=== PATIENT | male | born 1985 | race Caucasian/White ===

== ENCOUNTER 2021-04-19 20:31 | Emergency (ER) | payer OTHER, SELFPAY ==
[2021-04-19 20:44] VITALS: BP 121/67; PULSE 63; RESP 17; TEMP 36.4; O2SAT 99; BMI 26.2
--- NOTE | 2021-04-19 21:28 | ED_ITS ---
HPI - URI/Sore Throat General Chief Complaint: Upper Respiratory Symptoms Stated Complaint: runny nose headache congestion Time Seen by Provider: 04/19/21 21:27 Source: patient Mode of arrival: ambulatory Limitations: no limitations History of Present Illness HPI Narrative: 35-year-old male here with his daughter he has complaints of cough, runny nose, sinus congestion and pain for 2 days. no fevers, chills, tana rtness of breath, chest pain, vomiting, diarrhea Related Data Allergies Allergy/AdvReac Type Severity Reaction Status Date / Time No Known Allergies Allergy Verified 04/19/21 20:44 [No Known Allergies*] Review of Systems Review of Systems: Yes all other systems are reviewed and are negative Constitutional: Constitutional: Reports no additional constitutional complaints, Denies body ache(s), Denies chills, Denies fever(s), Reports headache(s) and Denies weakness Eyes: Eyes: Reports no additional eye complaints and Denies change in vision ENT: Reports system reviewed and no additional complaints, except as documented, Denies dizziness, Reports headache(s), Reports nasal congestion, Denies nasal discharge and Denies neck pain Cardiovascular: Cardiovascular: Reports no additional cardiovascular complaints, Denies chest pain, Denies leg edema and Denies dyspnea Respiratory: Respiratory: Reports no additional respiratory complaints, Denies cough and Denies dyspnea Gastrointestinal: Gastrointestinal: Reports no additional gastrointestinal complaints, Denies abdominal pain, Denies diarrhea, Denies nausea and Denies vomiting Genitourinary: Genitourinary: Denies urinary incontinence Musculoskeletal: Musculoskeletal: Reports no additional musculoskeletal complaints, Denies back pain, Denies arthralgias, Denies joint swelling, Denies neck pain, Denies numbness and Denies tingling Integumentary/Breasts: Skin/Breast: Reports system reviewed and no additional complaints, except as docu and Denies rash Neurologic: Reports system reviewed and no additional complaints, except as documented, Denies Abnormal speech present, Denies dizziness, Reports headache(s), Denies numbness, Denies tingling and Denies weakness PMFSH Past Medical History Attestation statement: The following information was validated with the patient. Source: old records reviewed and nursing notes reviewed Medical History Diverticulosis Kidney stones Migraines Social History Social History Advance Directives: No Advance Directives Information Provided: Yes Physical Exam Vital Signs: Vital Signs: Last Vital Signs Temp 97.6 F 04/19/21 20:44 Pulse 63 04/19/21 20:44 Resp 17 04/19/21 20:44 BP 121/67 04/19/21 20:44 Pulse Ox 99 04/19/21 20:44 BMI result Body Mass Index 26.2 Const: General: cooperative, healthy appearing, comfortable and no acute distress Orientation/consciousness: patient oriented x3 Limitations: no limitations HENMT: Head: Yes normal to inspection Ears: hearing grossly normal bilaterally and TM's normal bilaterally General nose exam: Normal external nose present Face and sinus: Yes normal facial exam Mouth: Normal oral and palatal mucosa present Throat: Yes posterior oropharynx normal, Yes tonsils normal and Yes uvula midline Eyes: General: appearance normal, both eyes and all related structures Pupils: Equal, round and reactive pupils present Neck: Neck: Yes normal visual inspection, Yes full ROM, Yes no lymphadenopathy and Yes no meningeal signs Chest: Chest palpation & inspection: normal inspection of the chest Resp: Effort & Inspection: normal respiratory effort Auscultation: clear to auscultation bilaterally Cardio: Rate: regular rate Rhythm: regular rhythm Peripheral pulses: Peripheral pulses 2+ throughout GI: Inspection: Yes normal to inspection Palpation (GI): Soft to palpation and nontender Auscultation: normal bowel sounds Back/Spine/Pelvis: Thoracic/Lumbar Spine: thoracic and lumbar spine normal to inspection Skin: General skin exam: no rashes or lesions noted Neuro: General: patient oriented x3, no meningeal signs, no focal motor deficits and normal sensation to monofilament Cranial nerves: Yes Equal, round and reactive pupils present Cognition (Neuro): normal cognition Speech: No Abnormal speech present Gait exam (Neuro): Normal gait present Motor exam (neuro): 5/5 motor strength present throughout Extrem: General: Yes normal to inspection, Yes no pedal edema and Yes no calf tenderness Course Course Course Narrative: URI symptoms x2 days with sick contact. Vital signs are stable. Exam is benign. Will send COVID screen 2300- COVID, flu and RSV screen are negative. Likely viral. Reviewed worrisome signs and symptoms of when to return to the emergency department. Comfortable discharge home. MDM - URI/Sore Throat Medical Records Attestation: I reviewed the patient's medical records. Lab Data Attestation: I reviewed the patient's lab results. Labs: Lab Results 04/19/21 Range/Units 21:06 Influenza Type A (PCR) NEGATIVE (Negative) Influenza Type B (PCR) NEGATIVE (Negative) RSV RNA Qual (PCR) NEGATIVE (Negative) SARS-CoV-2 RNA (RT-PCR) NEGATIVE (Negative) Discharge Plan Discharge Clinical Impression: Upper respiratory infection Patient Disposition: Home, Self-Care Instructions: Upper Respiratory Infection (ED) Additional Instructions: COVID testing negative in the meantime rest, Motrin or Tylenol if able as needed for pain or fever Increase fluids Referrals: Aj Weldon MD [Primary Care Provider] - 2 days
[2021-04-19 22:02] LABS: Influenza A PCR NEGATIVE (Negative); Influenza B PCR NEGATIVE (Negative); Resp Syncy Virus RNA Qual PCR NEGATIVE (Negative); SARS COV2 PCR INHOUSE NEGATIVE (Negative)
== END 2021-04-19 23:16 | disposition home or self-care (01) ==
PROVIDERS: Nurse Practitioner Family; Emergency Provider Internal Medicine; PCP Internal Medicine
DX: J06.9 Acute upper respiratory infection, unspecified (principal); Z20.822 Contact with and (suspected) exposure to COVID-19
CPT/HCPCS: 0241U; 36415; 99283

== ENCOUNTER 2022-06-12 16:40 | Emergency (ER) | payer OTHER, SELFPAY ==
[2022-06-12 17:26] VITALS: BP 144/72; PULSE 73; RESP 16; TEMP 36.1; O2SAT 98; BMI 27.3
--- NOTE | 2022-06-12 17:27 | ED_ITS ---
HPI - General Adult General Chief complaint: Headache <OJ Sanchez Last Filed: 06/18/22 12:33> Stated complaint: Migraine <OJ Sanchez Last Filed: 06/18/22 12:33> Time Seen by Provider: 06/12/22 18:03 <OJ Sanchez Last Filed: 06/18/22 12:33> Source: patient <OJ Torres Last Filed: 06/12/22 19:07> Mode of arrival: ambulatory <OJ Torres Last Filed: 06/12/22 19:07> Limitations: no limitations <OJ Torres Last Filed: 06/12/22 19:07> History of Present Illness HPI narrative: This is a 37-year-old male history of migraines presenting to the emergency department with migraine x4 days he tells me the migraine is diffuse in nature, without vision changes or dizziness. Tells me this feels like his typical. He has taken multiple [id number] medications with little to no relief. Patient denies head trauma, fevers, chills, nausea, vomiting vision changes, weakness, changes in speech, abdominal pain, chest pain, shortness of breath, tinnitus and photophobia <OJ Torres Last Filed: 06/12/22 19:07> Related Data Home medications: Previous Rx's Medication Instructions Recorded diphenhydramine HCl 25 mg capsule 25 mg PO TID PRN migrane #14 caps 06/12/22 (Benadryl) ketorolac 10 mg tablet 10 mg PO TID PRN pain 5 days #15 06/12/22 tabs metoclopramide HCl 10 mg tablet 10 mg PO Q6H PRN migrane #14 tabs 06/12/22 (Reglan) <OJ Sanchez Last Filed: 06/18/22 12:33> Allergies/adverse reactions: Allergies Allergy/AdvReac Type Severity Reaction Status Date / Time No Known Allergies Allergy Verified 04/19/21 20:44 [No Known Allergies*] <OJ Sanchez Last Filed: 06/18/22 12:33> Review of Systems Review of Systems: Constitutional : No Weight loss, No Fever, No Chills, No Fatigue, No Malaise ENT/Mouth : No sore throat, No Rhinorrhea Eyes: No Eye Pain, No Swelling, No Redness Cardiovascular : No Chest Pain, No SOB, No Dyspnea on Exertion, No Orthopnea, No Edema, No Palpitations Respiratory : No Cough, No Sputum, No Wheezing Gastrointestinal : No Nausea, No Vomiting, No Diarrhea, No Constipation, No abdominal Pain, No Hematochezia, No Melena Genitourinary : No Dysuria, No Urinary Frequency, No Hematuria, Musculoskeletal : No joint pain, No Myalgias, No Joint Swelling Skin : No Skin Lesions, No rash Neuro : No Weakness, No Numbness, No Dizziness, + Headache Psych : No Anxiety/Panic, No Depression All other systems reviewed and are negative <OJ Torres - Last Filed: 06/12/22 19:07> Yes all other systems are reviewed and are negative <OJ Torres - Last Filed: 06/12/22 19:07> [facility] Past Medical History Attestation statement: The following information was validated with the patient. <OJ Torres - Last Filed: 06/12/22 19:07> Source: old records reviewed and nursing notes reviewed <OJ Torres - Last Filed: 06/12/22 19:07> Medical History: Medical History Diverticulosis Kidney stones Migraines <OJ Sanchez - Last Filed: 06/18/22 12:33> Social History Social History: Social History Advance Directives: No Advance Directives Information Provided: No <OJ Sanchez - Last Filed: 06/18/22 12:33> Physical Exam ED Vital Signs: Vital Signs - 24 hr 06/12/22 17:26 Temperature 96.9 F Pulse Rate 73 Respiratory Rate 16 Blood Pressure 144/72 H Pulse Oximetry 98 BMI result Body Mass Index 27.3 <OJ Sanchez - Last Filed: 06/18/22 12:33> Vital Signs - 24 hr 06/12/22 17:26 Temperature 96.9 F Pulse Rate 73 Respiratory Rate 16 Blood Pressure 144/72 H Pulse Oximetry 98 BMI result Body Mass Index 27.3 Vital signs stable <OJ Torres Last Filed: 06/12/22 19:07> Appearance: Alert.? Oriented X3.? No acute distress.? Head: Normocephalic, atraumatic, no step-offs or deformities Eyes: Pupils equal, round and reactive to light.? Neck: Normal inspection.? Neck supple.? No meningeal signs. CVS: Normal heart rate and rhythm.? Pulses normal.? Respiratory: No respiratory distress.? Breath sounds normal.? Abdomen: Soft and nontender.? Skin: Skin warm and dry.? Normal skin color.? Normal skin turgor.? Extremities: No lower extremity edema.? No calf ttp. 5/5 strength to bilateral upper and lower extremities Back: No midline tenderness, no C-spine tenderness, full range of motion, no CVA tenderness bilaterally Neuro: Oriented X 3.? No motor deficit.? No sensory deficit. CN 2-12 intact . Normal ivdifl-ml-tair, dops-yh-vaee, steady tandem gait with normal coordination. Negative Romberg and pronator drift. <OJ Torres Last Filed: 06/12/22 19:07> Course Course Course Narrative: RME: 37 yold with pmh of migrianes presents to the ED for same migraines exacerbation. patient denies chest pain or shortness of breath. patient denies any neuro symptsom. NEuro exam is intact. WIll order SARS. <OJ Sanchez - Last Filed: 06/18/22 12:33> Reevaluation(s) Reevaluation #1: Patient feels a lot better tells me his headache has resolved. Will discharge home with Toradol, Benadryl and Reglan. Likely migraine. At time of discharge neuro remains nonfocal. Educated patient on diagnosis and treatment plan, answered all question, patient verbalizes understanding. At this time patient will be discharged home, advised to return with new or worsening symptoms. Educated on worrisome signs and symptoms and when to return. At this time I feel comfortable discharge home. <OJ Torres Last Filed: 06/12/22 19:07> Time: 19:06 <OJ Torres - Last Filed: 06/12/22 19:07> Medications Administered Discontinued Medications Generic Name Dose Route Start Last Admin Trade Name Freq PRN Reason Stop Dose Admin Diphenhydramine HCl 25 mg 06/12/22 18:07 06/12/22 18:33 Diphenhydramine Hcl 25 Mg Capsule PO 06/12/22 18:08 25 mg ONCE ONE Administration Ketorolac Tromethamine 30 mg 06/12/22 18:09 06/12/22 18:32 Ketorolac Tromethamine 30 Mg/Ml Vial IM 06/12/22 18:10 30 mg ONCE ONE Administration Metoclopramide HCl 10 mg 06/12/22 18:07 06/12/22 18:33 Metoclopramide Hcl 10 Mg Tablet PO 06/12/22 18:08 10 mg ONCE ONE Administration <OJ Sanchez - Last Filed: 06/18/22 12:33> Medications Administered Discontinued Medications Generic Name Dose Route Start Last Admin Trade Name Freq PRN Reason Stop Dose Admin Diphenhydramine HCl 25 mg 06/12/22 18:07 06/12/22 18:33 Diphenhydramine Hcl 25 Mg Capsule PO 06/12/22 18:08 25 mg ONCE ONE Administration Ketorolac Tromethamine 30 mg 06/12/22 18:09 06/12/22 18:32 Ketorolac Tromethamine 30 Mg/Ml Vial IM 06/12/22 18:10 30 mg ONCE ONE Administration Metoclopramide HCl 10 mg 06/12/22 18:07 06/12/22 18:33 Metoclopramide Hcl 10 Mg Tablet PO 06/12/22 18:08 10 mg ONCE ONE Administration <OJ Torres - Last Filed: 06/12/22 19:07> Medical Decision Making Medical Decision Making [facility] Narrative: 1805 37-year-old male presents with migraine x4 days not improving despite OTC medi cations. Feels like his typical. Physical exam benign. Neuro nonfocal. Cerebellar intact. Likely typical migraine. Unlikely stroke, posterior stroke, intracranial hemorrhage, Meniere's disease, meningitis. Plan at this time is p.o. medications, viral testing. <OJ Torres - Last Filed: 06/12/22 19:07> Differential Diagnosis Differential Diagnoses: The differential diagnosis associated with the presentation includes <OJ Torres - Last Filed: 06/12/22 19:07> Likely typical migraine. Unlikely stroke, posterior stroke, intracranial hemorrhage, Meniere's disease, meningitis. <OJ Torres - Last Filed: 06/12/22 19:07> Admission/Observation Consideration of admission/observation: Escalation of care including admission/observation considered <OJ Torres - Last Filed: 06/12/22 19:07> Lab Data Labs: Lab Results 06/12/22 Range/Units 17:58 Influenza Type A (PCR) NEGATIVE (Negative) Influenza Type B (PCR) NEGATIVE (Negative) RSV RNA Qual (PCR) NEGATIVE (Negative) SARS-CoV-2 RNA (RT-PCR) NEGATIVE (Negative) <OJ Sanchez - Last Filed: 06/18/22 12:33> Lab Results 06/12/22 Range/Units 17:58 Influenza Type A (PCR) NEGATIVE (Negative) Influenza Type B (PCR) NEGATIVE (Negative) RSV RNA Qual (PCR) NEGATIVE (Negative) SARS-CoV-2 RNA (RT-PCR) NEGATIVE (Negative) <OJ Torres - Last Filed: 06/12/22 19:07> Core Measures AMI core measures followed: Yes <OJ Torres - Last Filed: 06/12/22 19:07> Measure exclusions: not indicated <OJ Torres - Last Filed: 06/12/22 19:07> Critical Care Time Critical Care Time Critical Care Time: No <OJ Torres - Last Filed: 06/12/22 19:07> Discharge Plan Discharge Clinical Impression: Migraine <OJ Sanchez Last Filed: 06/18/22 12:33> Patient Disposition: Home, Self-Care <OJ Sanchez Last Filed: 06/18/22 12:33> Instructions: Migraine Headache (ED) <OJ Sanchez Last Filed: 06/18/22 12:33> Additional Instructions: Take your medications as prescribed. If you were prescribed antibiotics today, it is important that you take your medication to their entirety, do not skip any doses, do not finish them early. Follow-up with your primary care provider this week. Return to the emergency department with new or worsening symptoms. Such as fevers, chills, chest pain, shortness of breath, nausea, vomiting, dizziness, headache, vision changes, lethargy In case of emergency call 911 For migraines you can take Toradol as prescribed as well as Benadryl and Reglan for migraines. Please do not take Reglan alone as it can cause involuntary twitching. Always take it with Benadryl. Toradol has been sent to your pharmacy, you tolerated this well in the department. Please take this as prescribed do not take this with ibuprofen, or other NSAIDs, do not mix this with alcohol. Side effects of this medication including increased risk for bleeding and possible kidney injury. <OJ Sanchez - Last Filed: 06/18/22 12:33> Prescriptions: New metoclopramide HCl [Reglan] 10 mg tablet 10 mg PO Q6H PRN (Reason: migrane) Qty: 14 0RF diphenhydramine HCl [Benadryl] 25 mg capsule 25 mg PO TID PRN (Reason: migrane) Qty: 14 0RF ketorolac 10 mg tablet 10 mg PO TID PRN (Reason: pain) 5 Days Qty: 15 0RF Rx Instructions: Tolerated IM in the department <OJ Sanchez - Last Filed: 06/18/22 12:33> Referrals: [facility] [Provider Group] - 2 days Physician,Unknown J [Primary Care Provider] - 2 days <OJ Sanchez - Last Filed: 06/18/22 12:33> Stand Alone Forms: Work/School Release <OJ Sanchez - Last Filed: 06/18/22 12:33> Interventions: ED Discharge Assessment Last Done: 06/12/22 19:30 <OJ Sanchez - Last Filed: 06/18/22 12:33> Discharge Date/Time: 06/12/22 19:31 <OJ Sanchez - Last Filed: 06/18/22 12:33>
[2022-06-12] MEDS: Ketorolac Tromethamine 30 MG/ML VIAL IM (18:32)
[2022-06-12] MEDS: diphenhydrAMINE HCL 25 MG CAPSULE PO (18:33)
[2022-06-12] MEDS: Metoclopramide HCl 10 MG TABLET PO (18:33)
[2022-06-12 18:41] LABS: Influenza A PCR NEGATIVE (Negative); Influenza B PCR NEGATIVE (Negative); Resp Syncy Virus RNA Qual PCR NEGATIVE (Negative); SARS COV2 PCR INHOUSE NEGATIVE (Negative)
[2022-06-12 19:20] VITALS: BP 127/83; PULSE 58; RESP 16; TEMP 36.7; O2SAT 98
== END 2022-06-12 19:31 | disposition home or self-care (01) ==
PROVIDERS: Physician Assistant; Emergency Provider Student in an Organized Health Care Education/Training Program
DX: G43.909 Migraine, unspecified, not intractable, without status migrainosus (principal); Z20.822 Contact with and (suspected) exposure to COVID-19; Z20.828 Contact with and (suspected) exposure to other viral communicable diseases
CPT/HCPCS: 0241U; 96372; 99283; 99284; J1885

== ENCOUNTER 2024-10-12 22:01 | Emergency (ER) | payer BC, SELFPAY ==
--- NOTE | ~2024-10-12 | CT_ITS ---
CLINICAL HISTORY: intractable migraine x3wks CT head without contrast Comparison: None Findings: No intra-axial mass, midline shift, hydrocephalus, or acute hemorrhage. No significant atrophy-like change or white matter disease. The visualized paranasal sinuses and mastoid air cells are normal. The orbits are within normal limits. There is no acute fracture. IMPRESSION: 1. No acute intracranial findings. This document has been electronically signed by: Smooth Chase MD on 10/13/2024 04:01:52
[2024-10-12 22:07] VITALS: BP 125/86; PULSE 83; RESP 18; TEMP 36.6; O2SAT 97; BMI 28.2
[2024-10-12 23:18] LABS: Basophils Absolute Auto 0.1 X10*3/uL (0.0-0.2); Basophils Percent Auto 0.9 % (0-2); Eosinophils Absolute Auto 0.6 X10*3/uL (0.0-0.4); Eosinophils Percent Auto 6.1 % (0-4); Hematocrit 44.3 % (42.0-52.0); Hemoglobin 15.1 g/dl (14.0-18.0); Imm Gran Abs Auto 0.02 X10*3/uL (0.00-0.03); Imm Gran Pct Auto 0.2 % (0.0-0.4); Lymphocytes Percent Auto 20.4 % (20-40); MANUAL DIFF FLAG NO; Mean Corpuscular HGB Conc 34.1 g/dl (31.0-36.0); Mean Corpuscular Hemoglobin 30.6 pg (27.0-33.0); Mean Corpuscular Volume 89.9 fL (80.0-98.0); Monocytes Absolute Auto 0.8 X10*3/uL (0.1-1.2); Monocytes Percent Auto 7.7 % (2-11); Neutrophils Absolute Auto 6.4 x10*3/uL (2.0-8.3); Neutrophils Percent Auto 64.7 % (45-73); Platelet Count 245 X10*3/uL (160-400); Red Blood Count 4.93 X10*6/uL (4.60-5.80); Red Cell Distribution Width 12.1 % (11.0-16.0); White Blood Count 9.9 X10*3/uL (4.8-10.8)
[2024-10-12 23:32] LABS: Alanine Aminotransferase 22 U/L (0-40); Albumin Level 4.4 g/dL (3.5-5.0); Alkaline Phosphatase 57 U/L (39-117); Anion Gap 11 (12-20); Aspartate Amino Transferase 16 U/L (5-37); Bilirubin Direct 0.2 mg/dL (0.0-0.5); Bilirubin Total 0.4 mg/dL (0.0-1.0); Blood Urea Nitrogen 13 mg/dL (9-16); Calcium 9.1 mg/dL (8.4-10.2); Carbon Dioxide 30 mmol/L (22-29); Chloride 109 mmol/L (96-108); Creatinine Clr Calc Pharmacy 94.7; Estimated Glomerular Filt Rate > 60; Glucose Random 84 mg/dL (60-115); Potassium 4.8 mmol/L (3.3-5.1); Sodium 145 mmol/L (135-145); Total Protein 6.8 g/dL (6.5-8.0)
[2024-10-13 00:53] VITALS: BP 118/82; PULSE 65; RESP 16; TEMP 36.7; O2SAT 96
--- NOTE | 2024-10-13 02:02 | ED_ITS ---
HPI - Headache General Chief Complaint: Headache Stated Complaint: migraine x3 wks Time Seen by Provider: 10/13/24 01:26 Source: patient Mode of arrival: ambulatory Limitations: no limitations History of Present Illness ED Provider: Tash Maynard NP HPI Narrative: Patient is a 39-year-old male who presents emergency department for evaluation of a migraine headache. Constant in nature with varying intensity over the past 3 weeks, intractable despite taking Tylenol/ibuprofen at home. Described as a bandlike sensation across the entirety of his head. Has had similar migraines in the past but never that have previously lasted this long. Sometime ago he had seen his doctor was given a prescription for Fioricet but never felt that this really helped his migraines. Has not had further follow-up. He denies photophobia/phonophobia. No associated vision changes, dizziness, lightheadedness, neck pain, neck stiffness, recent ill like symptoms, numbness or tingling of the extremities, nausea, vomiting, poor balance/impaired gait Related Data Previous Rx's ?Medication ?Instructions ?Recorded diphenhydramine HCl 25 mg capsule 25 mg PO TID PRN migrane #14 caps 06/12/22 (Benadryl) ketorolac 10 mg tablet 10 mg PO TID PRN pain 5 days #15 06/12/22 tabs metoclopramide HCl 10 mg tablet 10 mg PO Q6H PRN migrane #14 tabs 06/12/22 (Reglan) Allergies Allergy/AdvReac Type Severity Reaction Status Date / Time No Known Allergies Allergy Verified 10/12/24 22:09 [No Known Allergies*] Review of Systems 2 Review of Systems: Yes all other systems are reviewed and are negative PMFSH Past Medical History Attestation statement: The following information was validated with the patient. Source: old records reviewed Medical History Diverticulosis Kidney stones Migraines Social History Social History Smoked in Last 30 Days: Yes Use of substances other than those prescribed or required for medical reasons: No Advance Directives: No Advance Directives Information Provided: Yes Do you have a plan to hurt others: No Plan Physical Exam 2 Vital Signs: Vital Signs: Last Vital Signs Temp 97.2 F 10/13/24 03:55 Pulse 57 10/13/24 03:55 Resp 14 10/13/24 03:55 BP 128/67 10/13/24 03:55 Pulse Ox 99 10/13/24 03:55 O2 Del Method Room Air 10/13/24 03:55 BMI result Body Mass Index 28.2 Appearance: Alert.?Oriented to person, place and time. No acute distress.?Normal affect. Head: Normocephalic, atraumatic Eyes: Pupils equal, round and reactive to light. EOMI. No nystagmus. No ptosis. No tenderness to palpation over the temporal region. ENT: External auditory canal normal tympanic membrane pearly smith and intact bilaterally. Oropharynx normal. Neck: Normal inspection.? Neck supple. No nuchal rigidity. CVS: Heart sounds normal. Normal heart rate and rhythm.? Pulses normal.?? Respiratory: No respiratory distress.? Lung sounds clear to auscultation bilaterally?? Abdomen: Soft and non-tender. Normoactive bowel sounds. ?? Skin: Skin warm and dry.? Normal skin color.? ?? Extremities: No lower extremity edema.? Neuro: Moves all extremities spontaneously. Sensation intact bilaterally. CN II- XII intact. No focal neuro deficits. Ambulatory with steady gait. Medications Administered Discontinued Medications Generic Name Dose Route Start Last Admin Trade Name Freq PRN Reason Stop Dose Admin Diphenhydramine HCl 25 mg 10/13/24 02:15 10/13/24 02:42 Diphenhydramine Hcl 50 Mg/Ml Vial IVPUSH 10/13/24 02:16 25 mg ONCE ONE Administration Sodium Chloride 1,000 mls @ 999 mls/hr 10/13/24 02:15 10/13/24 02:42 Ns IV 10/13/24 03:15 999 mls/hr .Q1H1M RADHA Administration Ketorolac Tromethamine 15 mg 10/13/24 02:15 10/13/24 02:43 Ketorolac Tromethamine 15 Mg/Ml Vial IVPUSH 10/13/24 02:16 15 mg ONCE ONE Administration Metoclopramide HCl 10 mg 10/13/24 02:15 10/13/24 02:43 Metoclopramide Hcl 10 Mg/2 Ml Vial IVPUSH 10/13/24 02:16 10 mg ONCE ONE Administration Medical Decision Making Medical Decision Making [facility] Narrative: Patient is a 39-year-old male past medical history of migraines who presents emergency department for evaluation of an intractable migraine over the past 3 weeks as per HPI. He has had no recent head injury, history of hypertension to suggest SDH, SDH, ICH, he has no focal neurological deficits. Given the intractability of his migraine over the past [address] of the head to exclude intracranial pathology such as DESK MONITOR mass, lower suspicion for CVA. He has no nuchal rigidity, signs of systemic toxicity or illness to suggest meningitis/encephalitis. Symptom does not appear consistent with GCA presentation. I suspect this is most likely intractable migraine for which he will require management in the ED with 1 L normal saline IV fluid, Toradol/Reglan/Benadryl IV. Headache is not exacerbated by exertion, no vision changes, no otherwise red flag symptoms, or immuno compromising conditions. Differential Diagnosis Differential Diagnoses: The differential diagnosis associated with the presentation includes (SDH, SAH, ICH, DESK MONITOR mass, meningitis, encephalitis, CVA, GCA, migraine, headache) Admission/Observation Consideration of admission/observation: Escalation of care including admission/observation considered Lab Data [facility] Lab Attestation statement: I reviewed the patient's lab results. CBC is without leukocytosis anemia or thrombocytopenia. No significant electrolyte derangement. No ROSIBEL. LFTs unremarkable. 10/12/24 23:12 10/12/24 23:12 Labs: Lab Results 10/12/24 Range/Units 23:12 WBC 9.9 (4.8-10.8) X10*3/uL RBC 4.93 (4.60-5.80) X10*6/uL Hgb 15.1 (14.0-18.0) g/dl Hct 44.3 (42.0-52.0) % MCV 89.9 (80.0-98.0) fL MCH 30.6 (27.0-33.0) pg MCHC 34.1 (31.0-36.0) g/dl RDW 12.1 (11.0-16.0) % Plt Count 245 (160-400) X10*3/uL MPV 9.0 L (9.4-12.4) fL Immature Gran % (Auto) 0.2 (0.0-0.4) % Neut % (Auto) 64.7 (45-73) % Lymph % (Auto) 20.4 (20-40) % [place] % (Auto) 7.7 (2-11) % Eos % (Auto) 6.1 H (0-4) % Baso % (Auto) 0.9 (0-2) % Lymph # (Auto) 2.0 (1.2-4.9) X10*3/uL [place] # (Auto) 0.8 (0.1-1.2) X10*3/uL Eos # (Auto) 0.6 H (0.0-0.4) X10*3/uL Baso # (Auto) 0.1 (0.0-0.2) X10*3/uL Abs Immat Gran (auto) 0.02 (0.00-0.03) X10*3/uL Absolute Neuts (auto) 6.4 (2.0-8.3) x10*3/uL Absolute Nucleated RBC 0.000 (0.0-0.012) X10*3/uL Nucleated RBC % (auto) 0.0 (0.0-0.2) /100WBC Sodium 145 (135-145) mmol/L Potassium 4.8 (3.3-5.1) mmol/L Chloride 109 H (96-108) mmol/L Carbon Dioxide 30 H (22-29) mmol/L Anion Gap 11 L (12-20) BUN 13 (9-16) mg/dL Creatinine 1.06 (0.5-1.4) mg/dL Estim Creat Clear Calc 94.7 Estimated GFR > 60 Random Glucose 84 (60-115) mg/dL Calcium 9.1 (8.4-10.2) mg/dL Total Bilirubin 0.4 (0.0-1.0) mg/dL Direct Bilirubin 0.2 (0.0-0.5) mg/dL AST 16 (5-37) U/L ALT 22 (0-40) U/L Alkaline Phosphatase 57 (39-117) U/L Total Protein 6.8 (6.5-8.0) g/dL Albumin 4.4 (3.5-5.0) g/dL Independent Interpretation I performed an independent interpretation of an: CT Scan (No ICH or intracranial mass, no apparent ischemia) Radiology Impression Discussion of test interpretation with radiology: I have reviewed the radiologist's reading. Radiologist Impression: CT head without contrast Comparison: None Findings: No intra-axial mass, midline shift, hydrocephalus, or acute hemorrhage. No significant atrophy-like change or white matter disease. The visualized paranasal sinuses and mastoid air cells are normal. The orbits are within normal limits. There is no acute fracture. IMPRESSION: 1. No acute intracranial findings. External Record Review External record reviewed: Outpatient record Prescription Management I considered prescription management with: Pain Medication Discharge Plan Discharge Clinical Impression: Migraine Patient Disposition: Home, Self-Care Instructions: Migraine Headache (ED) Additional Instructions: You were evaluated in the emergency department for your headache over the past 3 weeks. You were given medicine with improvement in your migraine headache. CT scan was obtained it did not show abnormal findings. As discussed, please contact your primary care provider and arrange for a follow-up visit, you can have a discussion with them in regards to abortive therapy medication as well as migraine prevention. Return to emergency department any new or worsening symptoms or concerns Prescriptions: No Action metoclopramide HCl [Reglan] 10 mg tablet 10 mg PO Q6H PRN (Reason: migrane) Qty: 14 0RF diphenhydramine HCl [Benadryl] 25 mg capsule 25 mg PO TID PRN (Reason: migrane) Qty: 14 0RF ketorolac 10 mg tablet 10 mg PO TID PRN (Reason: pain) 5 Days Qty: 15 0RF Rx Instructions: Tolerated IM in the department Referrals: Physician,None [Primary Care Provider] - Print Language: Vietnamese
[2024-10-13] MEDS: diphenhydrAMINE HCL 50 MG/ML VIAL 25 MG IVPUSH (02:42)
[2024-10-13] MEDS: 0.9 % Sodium Chloride 1,000 ML 999 ML IV (02:42)
[2024-10-13 02:43] VITALS: BP 120/77; PULSE 60; RESP 18; TEMP 36.6; O2SAT 96
[2024-10-13] MEDS: Ketorolac Tromethamine 15 MG/ML VIAL IVPUSH (02:43)
[2024-10-13] MEDS: Metoclopramide HCl 10 MG/2 ML VIAL IVPUSH (02:43)
[2024-10-13 03:19] VITALS: PULSE 65; RESP 16
[2024-10-13 03:55] VITALS: BP 128/67; PULSE 57; RESP 14; TEMP 36.2; O2SAT 99
[2024-10-13 04:10] VITALS: BP 117/69; PULSE 70; RESP 18; TEMP 36.7; O2SAT 99
[2024-10-13 04:27] VITALS: BP 117/69; PULSE 70; RESP 18; TEMP 36.7; O2SAT 99
== END 2024-10-13 04:28 | disposition home or self-care (01) ==
PROVIDERS: Emergency Provider Internal Medicine
DX: G43.909 Migraine, unspecified, not intractable, without status migrainosus (principal); R11.0 Nausea; Z79.899 Other long term (current) drug therapy
CPT/HCPCS: 36415; 70450; 80048; 80076; 85025; 96361; 96374; 96375; 99284; J1200; J1885; J2765

== ENCOUNTER → 2024-10-13 02:15 | Outpatient (BNV) | payer BC, SELFPAY | PROVIDERS: Emergency Provider Internal Medicine; Visit Provider Radiology Diagnostic Radiology | DX: G43.919 Migraine, unspecified, intractable, without status migrainosus (principal) | CPT/HCPCS: 70450 ==